=== PATIENT | male | born 1960 | race Caucasian/White ===

== ENCOUNTER 2021-03-21 10:43 | Observation (INO) | payer BC ==
[2021-03-21 12:44] LABS: #Basophils 0.1 thou/uL (0.0-0.2); #Eosinphils 0.4 thou/uL (0.0-0.7); #Lymphocytes 2.4 thou/uL (1.20-3.40); #Monocytes 1.1 thou/uL (0.11-0.59); #Neutrophils 9.2 thou/uL (1.40-6.50); %Basophils 0.6 % (0.0-1.0); %Eosinophils 2.7 % (0.0-10.0); %Lymphocytes 18.2 % (21.0-51.0); %Monocytes 8.2 % (0.0-10.0); %Neutrophils 70.3 % (42.0-75.0); Hemoglobin 17.8 g/dL (14.0-18.0); Mean Corpuscular Hemoglobin 28.2 pg (27.0-31.0); Mean Platelet Volume 7.9 fL (7.4-10.4); Platelet Count 312 thou/uL (130-400); RBC Distribution Width 13.9 % (11.5-14.5); Red Blood Cell (RBC) Count 6.31 mill/uL (4.70-6.10); White Blood Cell (WBC) Count 13.1 thou/uL (4.8-10.8)
[2021-03-21] MEDS ORDERED: Aspirin Chewable 81 MG TAB ONE (12:55)
[2021-03-21 13:12] LABS: ALT (SGPT) 26 U/L (8-55); AST (SGOT) 26 U/L (5-34); Albumin 4.3 g/dL (3.4-4.8); Alkaline Phosphatase 88 U/L (40-110); Anion Gap 18 mmol/L (10-20); BUN (Urea Nitrogen) 24 mg/dL (8.4-25.7); Bilirubin, Total 0.6 mg/dL (0.2-1.2); Calc. Creatinine Clearance 0 mL/min (70-130); Calcium 9.8 mg/dL (7.8-10.44); Carbon Dioxide 23 mmol/L (23-31); Chloride 102 mmol/L (98-107); Globulin 3.6 g/dL (2.4-3.5); Glucose 63 mg/dL (80-115); Potassium 4.2 mmol/L (3.5-5.1); Protein, Total 7.9 g/dL (5.8-8.1); Sodium 139 mmol/L (136-145)
[2021-03-21] MEDS ORDERED: Ondansetron ODT 4 MG TAB PO PRN (14:31)
[2021-03-21] MEDS ORDERED: hydrALAZINE 20 MG/ML VIAL SLOW IVP PRN (14:31)
[2021-03-21] MEDS ORDERED: Ondansetron PF 4 MG/2 ML Vial IVP PRN (14:31)
[2021-03-21] MEDS ORDERED: Acetaminophen 325 MG TAB PO PRN (14:31)
[2021-03-21] MEDS ORDERED: Acetaminophen 650 MG Suppository PR PRN (14:31)
[2021-03-21 14:59] VITALS: BMI 27.2
[2021-03-21] MEDS ORDERED: Insulin Regular 300 UNITS/3 ML VIAL SC PRN (16:17)
[2021-03-21] MEDS ORDERED: Dextrose 5% in Water 1,000 ML IV PRN (16:17)
[2021-03-21] MEDS ORDERED: Dextrose 50% Abboject 50 ML SYRINGE SLOW IVP PRN (16:17)
[2021-03-21] MEDS ORDERED: Insulin Regular 300 UNITS/3 ML VIAL ONE (18:58)
[2021-03-21] MEDS: Insulin Regular 300 UNITS/3 ML VIAL SC PRN (19:01)
[2021-03-21] MEDS ORDERED: Atorvastatin Calcium 40 MG TAB PO SCH ×2 (21:00)
[2021-03-21 21:32] LABS: SARS-CoV-2 PCR by NAA Not Detected (NotDetected)
[2021-03-21] MEDS: Carvedilol 25 MG TAB PO SCH (22:51)
[2021-03-22 05:33] LABS: #Basophils 0.1 thou/uL (0.0-0.2); #Eosinphils 0.4 thou/uL (0.0-0.7); #Lymphocytes 2.1 thou/uL (1.20-3.40); #Neutrophils 8.4 thou/uL (1.40-6.50); %Basophils 0.9 % (0.0-1.0); %Eosinophils 3.3 % (0.0-10.0); %Lymphocytes 17.3 % (21.0-51.0); %Neutrophils 70.5 % (42.0-75.0); Hemoglobin 15.6 g/dL (14.0-18.0); Mean Corpuscular HGB CONC 32.1 g/dL (32.0-36.0); Mean Corpuscular Hemoglobin 29.1 pg (27.0-31.0); Mean Corpuscular Volume 90.5 fL (78.0-98.0); Platelet Count 286 thou/uL (130-400); RBC Distribution Width 13.7 % (11.5-14.5); Red Blood Cell (RBC) Count 5.36 mill/uL (4.70-6.10); White Blood Cell (WBC) Count 11.9 thou/uL (4.8-10.8)
[2021-03-22] MEDS: Insulin Regular 300 UNITS/3 ML VIAL SC PRN ×3 (05:36→17:40)
[2021-03-22 06:04] LABS: Anion Gap 11 mmol/L (10-20); BUN (Urea Nitrogen) 28 mg/dL (8.4-25.7); Calc. Creatinine Clearance 61 mL/min (70-130); Calcium 9.1 mg/dL (7.8-10.44); Carbon Dioxide 29 mmol/L (23-31); Cardiac Risk 4.6 (Less than 4.5); Chloride 100 mmol/L (98-107); Cholesterol 79 mg/dl (< 200 Desired); Glucose 188 mg/dL (80-115); HDL Cholesterol 17 mg/dL (>60 Neg Risk); LDL Cholesterol, Calculated 41 mg/dL; Potassium 4.3 mmol/L (3.5-5.1); Sodium 136 mmol/L (136-145); Triglycerides 103 mg/dL (Less than 150)
[2021-03-22] MEDS ORDERED: Aspirin 325 mg Enteric Coated Tablet PO SCH (09:00)
[2021-03-22] MEDS: Carvedilol 25 MG TAB PO SCH (09:48)
[2021-03-22] MEDS ORDERED: hydrALAZINE 25 MG TAB PO SCH (15:00)
[2021-03-22 15:54] VITALS: BP 160/81; TEMP 98.2
[2021-03-22] MEDS ORDERED: Mometasone 200 MCG/Formoterol 5 MCG 120 PUFF INHALER INH SCH (18:30)
[2021-03-23] MEDS ORDERED: metFORMIN 500 MG TAB PO SCH (08:00)
[2021-03-23] MEDS ORDERED: Losartan 25 MG TAB PO SCH (09:00)
[2021-03-23] MEDS ORDERED: Ezetimibe 10 MG TAB PO SCH (09:00)
[2021-03-23] MEDS ORDERED: Montelukast Sodium 10 mg Tablet PO SCH (09:00)
[2021-03-23] MEDS ORDERED: Fluticasone Propionate Nasal Spray 16 gm Bottle NASAL SCH (09:00)
[2021-03-23] MEDS ORDERED: Amlodipine 10 MG TAB PO SCH (09:00)
[2021-03-23] MEDS ORDERED: Furosemide 40 MG TAB PO SCH (09:00)
[2021-03-23] MEDS ORDERED: Empagliflozin 25 MG TAB PO SCH (09:00)
== END 2021-03-22 18:09 | disposition home or self-care (01) ==
LOC: ERS 10:43 → ERHOLD 13:42 → 3SE 20:38
PROVIDERS: ADMIT Internal Medicine; ATTEND Internal Medicine
DX: G45.9 Transient cerebral ischemic attack, unspecified (principal); I12.9 Hypertensive chronic kidney disease with stage 1 through stage 4 chronic kidney disease, or unspecified chronic kidney disease; E11.22 Type 2 diabetes mellitus with diabetic chronic kidney disease; N18.30 Chronic kidney disease, stage 3 unspecified; I25.10 Atherosclerotic heart disease of native coronary artery without angina pectoris; E78.5 Hyperlipidemia, unspecified; J32.9 Chronic sinusitis, unspecified; I08.1 Rheumatic disorders of both mitral and tricuspid valves; Z79.4 Long term (current) use of insulin; Z79.82 Long term (current) use of aspirin; Z79.84 Long term (current) use of oral hypoglycemic drugs; Z79.899 Other long term (current) drug therapy; Z88.5 Allergy status to narcotic agent; Z91.013 Allergy to seafood; Z89.432 Acquired absence of left foot; Z95.1 Presence of aortocoronary bypass graft; Z20.822 Contact with and (suspected) exposure to COVID-19
CPT/HCPCS: 36415; 36416; 70450; 70551; 80048; 80061; 80076; 83036; 85025; 93306; 93880; 95712; 95819; 95957; G0378; J1815; U0003; U0005

== ENCOUNTER 2021-11-30 21:19 | Observation (INO) | payer BC ==
[2021-11-30] MEDS ORDERED: Ondansetron ODT 4 MG TAB PO PRN (23:14)
[2021-11-30] MEDS ORDERED: Bisacodyl 5 MG TAB PO PRN (23:14)
[2021-11-30] MEDS ORDERED: Senokot S 8.6-50 MG TAB PO PRN (23:14)
[2021-11-30] MEDS ORDERED: Ondansetron PF 4 MG/2 ML Vial IVP PRN (23:14)
[2021-11-30] MEDS ORDERED: Acetaminophen 650 MG Suppository PR PRN (23:14)
[2021-11-30 23:18] VITALS: BMI 28.1
[2021-12-01] MEDS: Acetaminophen 325 MG TAB PO PRN ×2 (04:21→20:40)
[2021-12-01] MEDS ORDERED: hydrALAZINE 20 MG/ML VIAL SLOW IVP PRN (05:21)
[2021-12-01] MEDS ORDERED: Acetaminophen 500 MG TAB PO SCH (05:30)
[2021-12-01 05:54] LABS: ALT (SGPT) 32 U/L (8-55); AST (SGOT) 32 U/L (5-34); Albumin 3.6 g/dL (3.4-4.8); Alkaline Phosphatase 90 U/L (40-110); Anion Gap 12 mmol/L (10-20); BUN (Urea Nitrogen) 23 mg/dL (8.4-25.7); Bilirubin, Total 0.6 mg/dL (0.2-1.2); Calc. Creatinine Clearance 66 mL/min (70-130); Calcium 8.9 mg/dL (7.8-10.44); Carbon Dioxide 28 mmol/L (23-31); Chloride 98 mmol/L (98-107); Estimated GFR 58; Globulin 3.1 g/dL (2.4-3.5); Glucose 124 mg/dL (80-115); Potassium 4.2 mmol/L (3.5-5.1); Protein, Total 6.7 g/dL (5.8-8.1); Sodium 134 mmol/L (136-145)
[2021-12-01 06:17] LABS: Band 12 % (5-11); Eosinophils 1 % (0-10); Hemoglobin 14.1 g/dL (14.0-18.0); Lymphocytes 14 % (21-51); MDiff Complete? YES; Mean Corpuscular HGB CONC 32.1 g/dL (32.0-36.0); Mean Corpuscular Hemoglobin 30.6 pg (27.0-31.0); Mean Corpuscular Volume 95.6 fL (78.0-98.0); Mean Platelet Volume 7.6 fL (7.4-10.4); Monocytes 20 % (0-10); Neutrophil 53 % (42-75); Platelet Count 211 thou/uL (130-400); RBC Distribution Width 14.2 % (11.5-14.5)
[2021-12-01] MEDS ORDERED: Dextrose 5% in Water 1,000 ML IV PRN ×2 (07:30→08:23)
[2021-12-01] MEDS ORDERED: Dextrose 50% Abboject 50 ML SYRINGE IVP PRN (07:30)
[2021-12-01] MEDS: Mometasone 200 MCG/Formoterol 5 MCG 120 PUFF INHALER INH SCH ×2 (07:55→23:50)
[2021-12-01] MEDS ORDERED: Insulin Regular 300 UNITS/3 ML VIAL SC PRN (08:23)
[2021-12-01] MEDS ORDERED: Dextrose 50% Abboject 50 ML SYRINGE SLOW IVP PRN (08:23)
[2021-12-01] MEDS: Famotidine/PF 20 mg/2ml Vial SLOW IVP SCH ×2 (09:09→20:58)
[2021-12-01] MEDS: Fluticasone Propionate Nasal Spray 16 gm Bottle NASAL SCH (09:19)
[2021-12-01] MEDS: Amlodipine 10 MG TAB PO SCH (09:19)
[2021-12-01] MEDS: Losartan 25 MG TAB PO SCH (09:20)
[2021-12-01] MEDS: Aspirin 325 mg Enteric Coated Tablet PO SCH (09:20)
[2021-12-01] MEDS: Empagliflozin 25 MG TAB PO SCH (09:20)
[2021-12-01] MEDS: hydrALAZINE 25 MG TAB PO SCH ×3 (09:20→20:40)
[2021-12-01] MEDS: Ezetimibe 10 MG TAB PO SCH (09:21)
[2021-12-01] MEDS: Furosemide 40 MG TAB PO SCH (09:21)
[2021-12-01] MEDS: Famotidine 20 MG TAB PO SCH ×2 (09:21→20:40)
[2021-12-01] MEDS: Carvedilol 25 MG TAB PO SCH ×2 (09:21→16:39)
[2021-12-01] MEDS: metFORMIN 500 MG TAB PO SCH (09:21)
[2021-12-01] MEDS: Montelukast Sodium 10 mg Tablet PO SCH (09:21)
[2021-12-01] MEDS: Heparin 5,000 UNITS/ML VIAL SC SCH ×3 (09:41→20:58)
[2021-12-01] MEDS: HumuLIN 70/30 (300 UNITS/3 ML VIAL) SC SCH ×2 (11:19→20:46)
[2021-12-01] MEDS: Atorvastatin Calcium 40 MG TAB PO SCH (20:40)
[2021-12-02] MEDS: Mometasone 200 MCG/Formoterol 5 MCG 120 PUFF INHALER INH SCH ×2 (06:40→20:54)
[2021-12-02] MEDS: Empagliflozin 25 MG TAB PO SCH (09:05)
[2021-12-02] MEDS: Amlodipine 10 MG TAB PO SCH (09:05)
[2021-12-02] MEDS: metFORMIN 500 MG TAB PO SCH (09:05)
[2021-12-02] MEDS: hydrALAZINE 25 MG TAB PO SCH ×3 (09:05→20:56)
[2021-12-02] MEDS: Carvedilol 25 MG TAB PO SCH ×2 (09:05→16:53)
[2021-12-02] MEDS: Furosemide 40 MG TAB PO SCH (09:05)
[2021-12-02] MEDS: Famotidine 20 MG TAB PO SCH ×2 (09:05→20:53)
[2021-12-02] MEDS: Ezetimibe 10 MG TAB PO SCH (09:05)
[2021-12-02] MEDS: Montelukast Sodium 10 mg Tablet PO SCH (09:05)
[2021-12-02] MEDS: Aspirin 325 mg Enteric Coated Tablet PO SCH (09:05)
[2021-12-02] MEDS: Losartan 25 MG TAB PO SCH (09:06)
[2021-12-02] MEDS: Famotidine/PF 20 mg/2ml Vial SLOW IVP SCH ×2 (09:06→21:13)
[2021-12-02] MEDS: HumuLIN 70/30 (300 UNITS/3 ML VIAL) SC SCH ×2 (09:07→20:54)
[2021-12-02] MEDS: Heparin 5,000 UNITS/ML VIAL SC SCH ×3 (09:07→21:14)
[2021-12-02] MEDS: Fluticasone Propionate Nasal Spray 16 gm Bottle NASAL SCH (09:07)
[2021-12-02] MEDS: Atorvastatin Calcium 40 MG TAB PO SCH (20:53)
[2021-12-02] MEDS: Acetaminophen 325 MG TAB PO PRN (20:55)
[2021-12-03] MEDS: Acetaminophen 325 MG TAB PO PRN (03:53)
[2021-12-03] MEDS: Mometasone 200 MCG/Formoterol 5 MCG 120 PUFF INHALER INH SCH (06:02)
[2021-12-03 06:15] LABS: #Eosinphils 0.3 thou/uL (0.0-0.7); #Lymphocytes 1.5 thou/uL (1.20-3.40); #Monocytes 0.7 thou/uL (0.11-0.59); %Basophils 0.2 % (0.0-1.0); %Eosinophils 6.2 % (0.0-10.0); %Lymphocytes 26.5 % (21.0-51.0); %Monocytes 12.3 % (0.0-10.0); %Neutrophils 54.8 % (42.0-75.0); Mean Corpuscular HGB CONC 32.1 g/dL (32.0-36.0); Mean Corpuscular Hemoglobin 30.9 pg (27.0-31.0); Mean Corpuscular Volume 96.3 fL (78.0-98.0); Mean Platelet Volume 7.5 fL (7.4-10.4); Platelet Count 183 thou/uL (130-400); RBC Distribution Width 14.3 % (11.5-14.5); Red Blood Cell (RBC) Count 4.54 mill/uL (4.70-6.10); White Blood Cell (WBC) Count 5.5 thou/uL (4.8-10.8)
[2021-12-03 06:20] LABS: Hemoglobin A1c 7.1 % (4.0-6.0)
[2021-12-03 06:41] LABS: ALT (SGPT) 26 U/L (8-55); AST (SGOT) 24 U/L (5-34); Albumin 3.2 g/dL (3.4-4.8); Alkaline Phosphatase 75 U/L (40-110); Anion Gap 13 mmol/L (10-20); BUN (Urea Nitrogen) 27 mg/dL (8.4-25.7); Bilirubin, Total 0.5 mg/dL (0.2-1.2); Calc. Creatinine Clearance 66 mL/min (70-130); Calcium 8.5 mg/dL (7.8-10.44); Carbon Dioxide 27 mmol/L (23-31); Chloride 100 mmol/L (98-107); Estimated GFR 58; Globulin 2.7 g/dL (2.4-3.5); Glucose 189 mg/dL (80-115); Potassium 4.4 mmol/L (3.5-5.1); Protein, Total 5.9 g/dL (5.8-8.1); Sodium 136 mmol/L (136-145)
[2021-12-03] MEDS: Ezetimibe 10 MG TAB PO SCH (11:10)
[2021-12-03] MEDS: Montelukast Sodium 10 mg Tablet PO SCH (11:10)
[2021-12-03] MEDS: Empagliflozin 25 MG TAB PO SCH (11:10)
[2021-12-03] MEDS: Aspirin 325 mg Enteric Coated Tablet PO SCH (11:10)
[2021-12-03] MEDS: Carvedilol 25 MG TAB PO SCH (11:10)
[2021-12-03] MEDS: metFORMIN 500 MG TAB PO SCH (11:10)
[2021-12-03] MEDS: hydrALAZINE 25 MG TAB PO SCH ×2 (11:11→14:40)
[2021-12-03] MEDS: Losartan 25 MG TAB PO SCH (11:11)
[2021-12-03] MEDS: Amlodipine 10 MG TAB PO SCH (11:11)
[2021-12-03] MEDS: Furosemide 40 MG TAB PO SCH (11:12)
[2021-12-03] MEDS: HumuLIN 70/30 (300 UNITS/3 ML VIAL) SC SCH (11:12)
[2021-12-03] MEDS: Famotidine/PF 20 mg/2ml Vial SLOW IVP SCH (11:12)
[2021-12-03] MEDS: Famotidine 20 MG TAB PO SCH (11:12)
[2021-12-03] MEDS: Fluticasone Propionate Nasal Spray 16 gm Bottle NASAL SCH (11:13)
[2021-12-03] MEDS: Heparin 5,000 UNITS/ML VIAL SC SCH ×2 (11:13→13:56)
[2021-12-03 16:59] VITALS: BP 147/79; TEMP 97.4
== END 2021-12-03 17:24 | disposition home or self-care (01) ==
LOC: MSONC 21:20 → INTOOBSV 21:20 → T4-A 12-01 17:15
PROVIDERS: ADMIT Internal Medicine; ATTEND Internal Medicine
DX: R41.82 Altered mental status, unspecified (principal); U07.1 COVID-19; G91.2 (Idiopathic) normal pressure hydrocephalus; I12.9 Hypertensive chronic kidney disease with stage 1 through stage 4 chronic kidney disease, or unspecified chronic kidney disease; E11.22 Type 2 diabetes mellitus with diabetic chronic kidney disease; N18.30 Chronic kidney disease, stage 3 unspecified; I25.10 Atherosclerotic heart disease of native coronary artery without angina pectoris; Z86.718 Personal history of other venous thrombosis and embolism; Z79.4 Long term (current) use of insulin; Z79.82 Long term (current) use of aspirin; Z79.84 Long term (current) use of oral hypoglycemic drugs; Z79.899 Other long term (current) drug therapy; Z88.5 Allergy status to narcotic agent; Z91.013 Allergy to seafood; Z91.041 Radiographic dye allergy status
CPT/HCPCS: 36415; 36416; 70551; 80053; 83036; 85025; 87040; 95712; 95819; 95957; 96374; G0378; J0360; U0003; U0005

== ENCOUNTER 2022-11-17 10:55 | Outpatient (CLI) | payer BC ==
[2022-11-17 12:11] LABS: Anion Gap 16 mmol/L (10-20); BUN (Urea Nitrogen) 14 mg/dL (8.4-25.7); Calc. Creatinine Clearance 0 mL/min (70-130); Calcium 8.5 mg/dL (7.8-10.44); Carbon Dioxide 24 mmol/L (23-31); Chloride 104 mmol/L (98-107); Estimated GFR 65; Glucose 163 mg/dL (80-115); Sodium 140 mmol/L (136-145)
[2022-11-17 12:17] LABS: #Basophils 0.1 10x3/uL (0.0-0.2); #Eosinphils 0.3 10x3/uL (0.0-0.5); #Monocytes 0.9 10x3/uL (0.0-1.1); #Neutrophils 6.5 10x3/uL (1.5-8.4); %Basophils 1.1 % (0.0-2.0); %Eosinophils 3.5 % (0.0-6.0); %Lymphocytes 20.1 % (18.0-47.0); %Monocytes 8.8 % (0.0-10.0); %Neutrophils 66.3 % (40.0-75.0); Hemoglobin 15.4 g/dL (13.5-17.5); Mean Corpuscular HGB CONC 32.4 g/dL (32.0-36.0); Mean Corpuscular Hemoglobin 28.6 pg (27.0-33.0); Mean Corpuscular Volume 88.1 fl (81.2-95.1); Mean Platelet Volume 10.1 fl (7.4-10.4); Platelet Count 332 10x3/uL (150-450); RBC Distribution Width 15.1 % (11.5-14.5); Red Blood Cell (RBC) Count 5.39 10x6/uL (4.32-5.72); White Blood Cell (WBC) Count 9.8 10x3/uL (3.5-10.5)
== END 2022-11-17 10:56 | disposition home or self-care (01) ==
LOC: LABBT 10:55
PROVIDERS: ATTEND Orthopaedic Surgery Hand Surgery
DX: Z01.818 Encounter for other preprocedural examination (principal); M67.441 Ganglion, right hand
CPT/HCPCS: 80048; 85025; 93005; 93010

== ENCOUNTER 2023-05-30 09:29 | Observation (INO) | payer BC ==
[~2023-05-30 09:29] MED LIST: Iopamidol-370 76% 500 ML MDV (1 ML CHARGE) ONE
[2023-05-30 10:14] LABS: #Basophils 0.1 thou/uL (0.0-0.2); #Eosinphils 0.3 thou/uL (0.0-0.7); #Monocytes 0.9 thou/uL (0.11-0.59); #Neutrophils 10.4 thou/uL (1.40-6.50); %Basophils 0.6 % (0.0-1.0); %Lymphocytes 9.1 % (21.0-51.0); %Monocytes 6.7 % (0.0-10.0); %Neutrophils 81.3 % (42.0-75.0); Hematocrit 48.2 % (42.0-52.0); Hemoglobin 15.5 g/dL (14.0-18.0); Mean Corpuscular HGB CONC 32.2 g/dL (32.0-36.0); Mean Corpuscular Hemoglobin 27.7 pg (27.0-31.0); Mean Corpuscular Volume 86.1 fl (78.0-98.0); Mean Platelet Volume 9.7 fL (7.4-10.4); Platelet Count 322 10x3/uL (130-400); RBC Distribution Width 15.9 % (11.5-14.5); White Blood Cell (WBC) Count 12.8 10x3/uL (4.8-10.8)
[2023-05-30] MEDS ORDERED: Ondansetron PF 4 MG/2 ML Vial ONE (10:14)
[2023-05-30 10:40] LABS: Troponin I 0.035 ng/mL (< 0.028)
[2023-05-30] MEDS ORDERED: diphenhydrAMINE 50 MG/ML VIAL ONE (11:28)
[2023-05-30] MEDS ORDERED: Famotidine/PF 20 mg/2ml Vial ONE (11:28)
[2023-05-30] MEDS ORDERED: methylPREDNISolone Sod Succ 40 MG VIAL ONE (11:28)
[2023-05-30 13:12] LABS: Albumin 3.1 g/dL (3.4-4.8)
[2023-05-30 13:14] LABS: Calcium 8.4 mg/dL (7.8-10.44); Chloride 107 mmol/L (98-107); Potassium 3.8 mmol/L (3.5-5.1); Sodium 140 mmol/L (136-145)
[2023-05-30 13:15] LABS: Globulin 3.2 g/dL (2.4-3.5); Glucose 85 mg/dL (80-115); Protein, Total 6.3 g/dL (5.8-8.1)
[2023-05-30 13:16] LABS: Anion Gap 12 mmol/L (10-20); Carbon Dioxide 25 mmol/L (23-31)
[2023-05-30 13:17] LABS: Bilirubin, Total 1.2 mg/dL (0.2-1.2)
[2023-05-30 13:18] LABS: Alkaline Phosphatase 66 U/L (40-110); Calc. Creatinine Clearance 0 mL/min (70-130); Estimated GFR 83
[2023-05-30 13:19] LABS: BUN (Urea Nitrogen) 17 mg/dL (8.4-25.7)
[2023-05-30 13:20] LABS: AST (SGOT) 13 U/L (5-34)
[2023-05-30 13:21] LABS: ALT (SGPT) 16 U/L (8-55); Magnesium 1.7 mg/dL (1.6-2.6)
[2023-05-30 13:22] LABS: Lipase 16 U/L (8-78)
[2023-05-30] MEDS ORDERED: hydrALAZINE 20 MG/ML VIAL SLOW IVP PRN (15:52)
[2023-05-30] MEDS ORDERED: Glucagon 1 MG/ML KIT IM PRN (15:55)
[2023-05-30] MEDS ORDERED: Dextrose 50% Abboject 50 ML SYRINGE SLOW IVP PRN (15:55)
[2023-05-30] MEDS ORDERED: Dextrose 5% in Water 1,000 ML IV PRN (15:55)
[2023-05-30] MEDS ORDERED: HumaLOG 300 UNITS/3 ML VIAL SC PRN (15:55)
[2023-05-30] MEDS ORDERED: Aspirin 325 mg Enteric Coated Tablet PO SCH (17:30)
[2023-05-30 18:21] VITALS: BMI 29.2
[2023-05-30] MEDS ORDERED: Atorvastatin Calcium 40 MG TAB PO SCH (21:00)
[2023-05-30] MEDS: Heparin 5,000 UNITS/ML VIAL SC SCH (21:52)
[2023-05-30] MEDS: Furosemide 40 MG TAB PO SCH (21:53)
[2023-05-30] MEDS: metFORMIN 500 MG TAB PO SCH (21:53)
[2023-05-30] MEDS: Carvedilol 25 MG TAB PO SCH (21:54)
[2023-05-31 03:12] LABS: SARS-CoV-2 NAA Rapid Test Not Detected (NotDetected)
[2023-05-31 05:39] LABS: #Basophils 0.1 thou/uL (0.0-0.2); #Eosinphils 0.3 thou/uL (0.0-0.7); #Monocytes 0.8 thou/uL (0.11-0.59); #Neutrophils 7.5 thou/uL (1.40-6.50); %Basophils 0.9 % (0.0-1.0); %Eosinophils 2.9 % (0.0-10.0); %Lymphocytes 13.9 % (21.0-51.0); %Neutrophils 74.1 % (42.0-75.0); Hematocrit 43.8 % (42.0-52.0); Hemoglobin 13.7 g/dL (14.0-18.0); Mean Corpuscular HGB CONC 31.3 g/dL (32.0-36.0); Mean Corpuscular Hemoglobin 27.7 pg (27.0-31.0); Mean Corpuscular Volume 88.5 fl (78.0-98.0); Mean Platelet Volume 9.9 fL (7.4-10.4); Platelet Count 331 10x3/uL (130-400); RBC Distribution Width 16.1 % (11.5-14.5); Red Blood Cell (RBC) Count 4.95 mill/uL (4.70-6.10); White Blood Cell (WBC) Count 10.1 10x3/uL (4.8-10.8)
[2023-05-31 06:08] LABS: Anion Gap 13 mmol/L (10-20); BUN (Urea Nitrogen) 23 mg/dL (8.4-25.7); Calc. Creatinine Clearance 72 mL/min (70-130); Calcium 8.6 mg/dL (7.8-10.44); Carbon Dioxide 26 mmol/L (23-31); Cardiac Risk 9.4 (Less than 4.5); Chloride 105 mmol/L (98-107); Cholesterol 85 mg/dl (< 200 Desired); Estimated GFR 61; Glucose 93 mg/dL (80-115); HDL Cholesterol 9 mg/dL (>60 Neg Risk); LDL Cholesterol, Calculated 46 mg/dL; Potassium 4.1 mmol/L (3.5-5.1); Sodium 140 mmol/L (136-145); Triglycerides 151 mg/dL (Less than 150)
[2023-05-31] MEDS ORDERED: Amlodipine 10 MG TAB PO SCH (09:00)
[2023-05-31] MEDS ORDERED: Allopurinol 300 MG TAB PO SCH (09:00)
[2023-05-31] MEDS ORDERED: Aspirin 325 mg Enteric Coated Tablet PO SCH (09:00)
[2023-05-31] MEDS ORDERED: Ezetimibe 10 MG TAB PO SCH (09:00)
[2023-05-31] MEDS: hydrALAZINE 25 MG TAB PO SCH ×2 (09:27→16:39)
[2023-05-31] MEDS: Carvedilol 25 MG TAB PO SCH (09:27)
[2023-05-31] MEDS: Furosemide 40 MG TAB PO SCH (09:27)
[2023-05-31] MEDS: metFORMIN 500 MG TAB PO SCH (09:28)
[2023-05-31] MEDS: Heparin 5,000 UNITS/ML VIAL SC SCH (09:29)
[2023-05-31 17:03] VITALS: BP 148/68; TEMP 97.3
== END 2023-05-31 18:36 | disposition home or self-care (01) ==
LOC: ERS 09:29 → INTOOBSV 15:23 → ERHOLD 15:23 → 2SE 18:12
PROVIDERS: ADMIT Internal Medicine; ATTEND Internal Medicine
DX: R41.0 Disorientation, unspecified (principal); E11.9 Type 2 diabetes mellitus without complications; I11.0 Hypertensive heart disease with heart failure; I50.9 Heart failure, unspecified; I25.10 Atherosclerotic heart disease of native coronary artery without angina pectoris; G93.89 Other specified disorders of brain; Z88.5 Allergy status to narcotic agent; Z91.040 Latex allergy status; Z91.013 Allergy to seafood; Z79.4 Long term (current) use of insulin; Z79.899 Other long term (current) drug therapy; Z79.84 Long term (current) use of oral hypoglycemic drugs; Z98.890 Other specified postprocedural states; Z89.432 Acquired absence of left foot; Z95.1 Presence of aortocoronary bypass graft
CPT/HCPCS: 36415; 36416; 70450; 70551; 71045; 74177; 80048; 80053; 80061; 83605; 83690; 83735; 83880; 84443; 84484; 85025; 93005; 93306; 96361; 96372; 96374; G0378; J1200; J1644; J2405; J2920; Q9967; S0028

== ENCOUNTER 2023-06-02 06:39 | Emergency (ER) | payer BC ==
[2023-06-02] MEDS ORDERED: LORazepam 2 MG/ML SYR.(CARPUJECT) ONE (06:45)
[2023-06-02] MEDS ORDERED: Midazolam HCl 5 mg/ml Vial ONE (06:48)
[2023-06-02 07:07] LABS: #Basophils 0.1 thou/uL (0.0-0.2); #Eosinphils 0.4 thou/uL (0.0-0.7); #Monocytes 0.8 thou/uL (0.11-0.59); #Neutrophils 11.8 thou/uL (1.40-6.50); %Basophils 0.7 % (0.0-1.0); %Eosinophils 2.6 % (0.0-10.0); %Lymphocytes 5.1 % (21.0-51.0); %Neutrophils 85.2 % (42.0-75.0); Hematocrit 47.5 % (42.0-52.0); Hemoglobin 15.4 g/dL (14.0-18.0); Mean Corpuscular HGB CONC 32.4 g/dL (32.0-36.0); Mean Corpuscular Hemoglobin 28.3 pg (27.0-31.0); Mean Corpuscular Volume 87.3 fl (78.0-98.0); Mean Platelet Volume 9.7 fL (7.4-10.4); Platelet Count 405 10x3/uL (130-400); Red Blood Cell (RBC) Count 5.44 mill/uL (4.70-6.10); White Blood Cell (WBC) Count 13.9 10x3/uL (4.8-10.8)
[2023-06-02 07:26] LABS: INR-International Normal Ratio 0.9; PTT 29.1 sec (22.9-36.1)
[2023-06-02 07:51] LABS: ALT (SGPT) 23 U/L (8-55); AST (SGOT) 33 U/L (5-34); Albumin 3.6 g/dL (3.4-4.8); Alkaline Phosphatase 88 U/L (40-110); Anion Gap 16 mmol/L (10-20); BUN (Urea Nitrogen) 25 mg/dL (8.4-25.7); Bilirubin, Total 0.8 mg/dL (0.2-1.2); Calc. Creatinine Clearance 0 mL/min (70-130); Calcium 8.7 mg/dL (7.8-10.44); Carbon Dioxide 24 mmol/L (23-31); Chloride 103 mmol/L (98-107); Estimated GFR 50; Globulin 3.8 g/dL (2.4-3.5); Glucose 129 mg/dL (80-115); Magnesium 1.9 mg/dL (1.6-2.6); Potassium 4.1 mmol/L (3.5-5.1); Protein, Total 7.4 g/dL (5.8-8.1); Sodium 139 mmol/L (136-145)
[2023-06-02 07:53] LABS: Troponin I 0.033 ng/mL (< 0.028)
[2023-06-02 07:57] LABS: Actual Bicarbonate (HCO3a) 26.7 mEq/L (22-28); Analyzer IN Cardio ER; Calcium, Ionized (arterial) 1.17 mmol/L (1.12-1.30); Hematocrit-ABG 44 % (42.0-52.0); Hemoglobin (Hb) 14.9 g/dL (14.0-18.0); O2 Tension (PaO2), arterial 290.9 mmHg (> 80.0); Potassium - ABG Lab 3.83 mmol/L (3.70-5.30); pH, Arterial 7.247 (7.35-7.45)
[2023-06-02 08:04] LABS: CO2 Tension 62.7 mmHg (35.0-45.0)
[2023-06-02 08:05] LABS: ALV-art Gradient 343.725 mmHg (0-20); Puncture Site LBA
[2023-06-02 10:26] LABS: Bacteria/HPF None Seen HPF (None Seen); Bilirubin Negative (Negative); Blood, Urine Negative (Negative); CAUTI Indications for Culture Dysuria,urgency,freq; Clarity Clear (Clear); Glucose, Urine (Dipstick) Greater than 1000 mg/dL (Negative); Ketone, Urine Negative (Negative); Leukocyte Negative Leu/uL (Negative); Nitrite Negative (Negative); Protein, Urine (Dipstick) 100 mg/dL (Neg-Trace); RBC/HPF 0-3 HPF (0-3); Specific Gravity, Urine 1.034 (1.002-1.036); Squamous Epithelial None Seen HPF (0-3); Urobilinogen Normal mg/dL (Less than 2); WBC/HPF 0-3 HPF (0-3); pH, Urine 5.5 (5.0-9.0)
[2023-06-02 10:29] LABS: Urine Culture Reflex No No
[2023-06-02] MEDS ORDERED: Iopamidol 370 76% 100 ML VIAL ONE (10:45)
[2023-06-02] MEDS ORDERED: levETIRAcetam 4,500 MG in Sodium Chloride 0.9% 100 ML IVPB SCH (11:00)
== END 2023-06-02 11:22 | disposition short-term general hospital (02) ==
LOC: ERS 06:39
DX: R56.9 Unspecified convulsions (principal); I63.9 Cerebral infarction, unspecified; E11.9 Type 2 diabetes mellitus without complications; I10 Essential (primary) hypertension
CPT/HCPCS: 0042T; 36415; 36416; 36600; 51701; 70450; 70496; 70498; 71045; 80053; 81001; 82140; 82805; 83605; 83735; 83880; 84484; 85025; 85610; 85730; 87040; 87086; 93005; 96361; 96372; 96374; J1953; J2060; J2250; J3490; Q9967

== ENCOUNTER 2024-05-15 16:18 | Outpatient (CLI) | payer BC | END 2024-05-15 16:19 | disposition home or self-care (01) | LOC: SCSRAD 16:18 | PROVIDERS: ATTEND Family Medicine | DX: R05.3 Chronic cough (principal); I51.7 Cardiomegaly; R09.89 Other specified symptoms and signs involving the circulatory and respiratory systems | CPT/HCPCS: 71046 ==